=== PATIENT | male | born 1980 | race Caucasian/White ===

== ENCOUNTER → 2020-12-21 | Outpatient (CLI) | payer OTHER ==
--- NOTE | 2020-12-21 15:56 | REP ---
INDICATION: CHRONIC LBP. COMPARISON: None. TECHNIQUE: Sagittal T1, T2, stir images obtained. Axial T1 and T2 weighted images obtained. FINDINGS: There is mild multilevel degenerative disc disease with loss of disc height and disc desiccation seen diffusely throughout the lumbar spine. Vertebral heights are overall preserved. No tara malalignments. Conus ends normally at L1 level. On the sagittal T2 weighted images, no evidence of limiting canal stenosis. A T1 hyperintense nodularity at the conus medullaris likely represents a lipoma. On the review of axial images, At L1-2 no significant canal or foraminal narrowing. At L2-3 global disc bulge with zryp-vu-jjttgahm canal narrowing and gflx-oh-hhxmizvm bilateral foraminal narrowing. At L3-4 global disc bulge with ijom-gq-qikffnyn canal narrowing and moderate right and vacs-ey-wftmdsen left foraminal narrowing. At L4-5 global disc bulge with mild canal narrowing and eqhc-bw-afeyuwvm bilateral foraminal narrowing. At L5-S1 no significant canal stenosis, mild bilateral foraminal narrowing. On the STIR images, no significant stir signal abnormality to suggest soft tissue or ligamentous injury. IMPRESSION: 1. No acute findings. No limiting canal or foraminal stenosis or disc herniation identified. Dmtj-wj-obrzbvue degenerate degenerative changes. 2. 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 <Electronically signed by Huy Nice > 12/21/20 1988
== END ==
LOC: M PLARAD 14:14
PROVIDERS: ATTEND Physical Medicine & Rehabilitation
DX: G43.009 Migraine without aura, not intractable, without status migrainosus (principal); M54.16 Radiculopathy, lumbar region

== ENCOUNTER → 2021-01-24 | Outpatient (REF) ==
--- NOTE | 2021-01-24 13:50 | REPPI ---
INDICATION: DDD. COMPARISON: None. TECHNIQUE: AP, lateral, open mouth views of the cervical spine FINDINGS: Alignment is maintained. No acute fracture/compression injury or subluxation. Very minimal disc space narrowing at C5-6. Remainder of the examination is normal. IMPRESSION: Mild disc space narrowing at C5-6. <Electronically signed by Gume Richards > 01/24/21 [id number]
--- NOTE | 2021-01-24 13:53 | REPPI ---
INDICATION: DDD COMPARISON: None. TECHNIQUE: Internal rotation, external rotation, and Y view. FINDINGS: No acute fracture or dislocation. The acromioclavicular and glenohumeral joints are intact and essentially age-appropriate by radiographic evaluation. No periarticular calcifications or significant degenerative changes are appreciated. Sub acromial space is normal. Surrounding soft tissues are unremarkable. IMPRESSION: Normal age-appropriate right shoulder radiographs. <Electronically signed by Gume Richards > 01/24/21 [id number]
== END ==
LOC: M PLAIMG 09:04
PROVIDERS: ATTEND Internal Medicine
DX: M25.511 Pain in right shoulder (principal); M50.322 Other cervical disc degeneration at C5-C6 level